=== PATIENT | female | born 1985 | race Caucasian/White ===

== ENCOUNTER 2017-08-08 18:01 | Emergency (ER) | payer OTHER ==
[~2017-08-08] VITALS: Ht 157.5 cm; Wt 91.7 kg
[~2017-08-08 18:01] MED LIST: ACET-1757 PO; DOCU-180 PO; DOCU100T6 PO; ERTA1VIA IV; FLUO10CA7 PO; FLUO20CA19 PO; HYDR-3240 PO; HYDR-3241 PO; NORE-73 PO; ONDA4TAB10 PO; OXYC1TAB7 PO; PROBIOTIC 10 PO; TAMS0.4C2 PO
[2017-08-08] MEDS ORDERED: SODIUM CHLORIDE 0.9% 1,000ML IVBOLUS ONE ×2 (19:00→19:30)
[2017-08-08] MEDS ORDERED: SODIUM CHLORIDE FLUSH 10ML SYR IVF ONE ×2 (19:00→19:30)
[2017-08-08] MEDS ORDERED: PROCHLORPERAZINE 5 MG/ML, 2ML IVPush ONE ×2 (19:00→19:30)
[2017-08-08] MEDS ORDERED: DIPHENHYDRAMINE 50 MG/ML, 1ML IVPush ONE ×2 (19:00→19:30)
[2017-08-08 19:30] LABS: HEMATOCRIT 37.6 % (34.6-47.8); WHITE BLOOD COUNT 10.5 x10^3/uL (3.4-10)
[2017-08-08] MEDS ORDERED: PREN1TAB60 PO (19:30)
[2017-08-08] MEDS ORDERED: MORPHINE SULFATE 4 MG/ML, 1ML IVPush PRN (19:30)
[2017-08-08] MEDS ORDERED: ACET325T14 PO (19:31)
[2017-08-08] MEDS ORDERED: PROCHLORPERAZINE 5 MG/ML, 2ML ONE (19:34)
[2017-08-08] MEDS ORDERED: morphine SULFATE 10 MG/ML, 1ML ONE (19:35)
[2017-08-08] MEDS ORDERED: DIPHENHYDRAMINE 50 MG/ML, 1ML ONE (19:35)
[2017-08-08 19:40] LABS: ASPARTATE AMINO TRANSFERASE 15 U/L (15-37); BLOOD UREA NITROGEN 6 mg/dL (7-18)
[2017-08-08] MEDS ORDERED: OMNIPAQUE 350 MG/ML, 100ML BOTTLE ONE (20:39)
[2017-08-08 21:37] VITALS: BP 122/67
== END 2017-08-08 21:41 | disposition home or self-care (01) ==
LOC: ED 21:32
DX: O26.892 Other specified pregnancy related conditions, second trimester (principal); Z3A.15 15 weeks gestation of pregnancy; G43.111 Migraine with aura, intractable, with status migrainosus
CPT/HCPCS: 36415; 70460; 80053; 85025; 96361; 96374; 96375; 99285; J0780; J1200; J7030; Q9967